=== PATIENT | male | born 1990 | race Caucasian/White ===

== ENCOUNTER 2017-11-28 18:33 | Emergency (ER) | payer SELFPAY ==
[2017-11-28 18:38] VITALS: BP 125/68; PULSE 90; RESP 18; TEMP 38.1; O2SAT 100; BMI 25.8
[2017-11-28] MEDS: DOXYCYCLINE HYCLATE 100 MG TABLET PO (19:21)
--- NOTE | 2017-11-28 21:21 | ED_ITS ---
HPI - Extremity Problem General Chief complaint: Extremity Problem,Nontraumatic Stated complaint: THINKS INFECTION OF RIGHT KNEE,HAS A FEVER Time Seen by Provider: 11/28/17 18:34 Source: patient and family Mode of arrival: ambulatory Limitations: no limitations History of Present Illness HPI Narrative: 27-year-old otherwise healthy male presents with a day and half of increasing pain and redness to his right anterior knee in the absence of injury. Additionally he complains a low-grade fever. He has pain in his anterior knee but is able to flex and extend without tremendous difficulty he denies any history of MRSA MD Complaint: extremity pain and extremity swelling Onset (ago): hour(s) Pain Consistency: constant Location: right Quality: burning and aching Radiation: none Relieving factors: rest Exacerbating factors: range of motion, weight bearing, walking and palpation Associated symptoms: fever Related Data Previous Rx's Medication Instructions Recorded doxycycline hyclate 100 mg PO BID #14 cap 11/28/17 Allergies Allergy/AdvReac Type Severity Reaction Status Date / Time Amoxicillin Allergy Unknown UNKNOWN Uncoded 11/28/17 18:41 Review of Systems Review of Systems All systems reviewed & are unremarkable except as noted in HPI and below Constitutional Denies chills, Reports fever(s), Denies lethargy and Denies weakness Eyes Denies change in vision, Denies eye discharge, Denies irritation and Denies loss of vision ENT Ears, Nose, Mouth, and Throat: Denies change in voice, Denies neck pain and Denies sore throat Cardiovascular Denies chest pain, Denies irregular heart rhythm, Denies lightheadedness, Denies palpitations, Denies dyspnea, Denies dyspnea on exertion and Denies orthopnea Respiratory Denies cough, Denies dyspnea, Denies dyspnea on exertion and Denies wheezing Gastrointestinal Gastrointestinal: Denies abdominal pain, Denies change in bowel habits, Denies diarrhea, Denies nausea and Denies vomiting Genitourinary Denies hematuria, Denies flank pain, Denies urinary incontinence and Denies urinary urgency Musculoskeletal Reports joint swelling, Reports limited range of motion and Denies neck pain Integumentary/Breasts Denies pruritus, Reports erythema, Denies rash, Reports skin pain, Reports skin swelling and Denies wounds Neurologic Denies confusion, Denies loss of vision and Denies weakness Psychiatric Denies anxiety, Denies confusion, Denies depression, Denies homicidal ideation and Denies suicidal ideation Endocrine Denies palpitations Hematologic/Lymphatic Denies easy bruising Allergic/Immunologic Denies wheezing Exam Narrative Exam Narrative: 27-year-old male in mild distress, clutching his right knee Initial Vital Signs Initial Vital Signs: Vital Signs Temperature 100.5 F H 11/28/17 18:38 Pulse Rate 90 11/28/17 18:38 Respiratory Rate 18 11/28/17 18:38 Blood Pressure 125/68 H 11/28/17 18:38 Pulse Oximetry 100 11/28/17 18:38 Const General: cooperative, well developed and in distress Nutritional Appearance: well nourished Orientation: alert, awake, oriented x3 and not confused HENMT Head: normal to inspection Nose: external nose normal Face and sinus: normal facial exam Eyes Pupils: PERRL EOM: EOM intact bilaterally Resp Effort & Inspection: normal respiratory effort, able to speak in complete sentences, no respiratory distress and no use of accessory muscles Auscultation: clear to auscultation bilaterally, no rales, no rhonchi and no wheezes GI Inspection: non-distended Palpation: soft, no hepatosplenomegaly, No guarding, No pulsatile mass and No tender Auscultation: normal bowel sounds Skin General: erythema and warm Other: Well-circumscribed painful erythematous skin with minimal edema overlying right patella. There is no fluctuance or induration Extrem Right lower extremity: full ROM and knee Procedures Abscess I/D Site: lower extremity (knee) Side (if applicable): right Local Anesthetic: lidocaine 1% and bupivacaine 0.5% Amount of anesthesia used (mL): 4 Technique: needle aspiration Amount of fluid expressed (mL): 0 Irrigation: No Packing used?: none Course Orders Ordered: Discontinued Medications Hydrocodone Bitart/Acetaminophen (Vicodin Prepack) 1 bottle MISC SEEINSTR ONE Stop: 11/28/17 19:13 Doxycycline Hyclate (Vibramycin) 100 mg PO NOW ONE Stop: 11/28/17 19:13 Last Admin: 11/28/17 19:21 Dose: 100 mg Vital Signs - 8 hr 11/28/17 18:38 Temperature 100.5 F H Pulse Rate 90 Respiratory Rate 18 Blood Pressure 125/68 H Pulse Oximetry 100 MDM - Extremity (Nontraumatic) MDM Narrative Medical decision making narrative: Septic arthritis considred but patient has full ROM of knee and very minimal effusion if any at all. The skin overlying patella is erythematous, warm, painful, and wall circumscribed suggesting cellulitis. Bedside US used and perhaps a small fluid collection noted, therefore needle aspiration attempted without success. No labs drawn Discharge Plan Departure Patient Disposition: Home, Self-Care Clinical Impression: Cellulitis of knee, right, Bursitis, prepatellar, right Discharge Date/Time: 11/28/17 19:29 Interventions: ED Discharge Assessment Last Done: 11/28/17 19:29 Instructions: DI for Cellulitis -- Adult Activity Restrictions/Additional Instructions: *You have been diagnosed with [ right knee cellulitis and possible prepatellar bursitis without abscess ] *What to do: *Take medications as directed *Follow up with your primary care provider in 2-3 days, call for an appointment. Let them know you were seen in the Emergency Department and that we ask that you be seen in follow up *Return to ER if you should have any new, worsening or concerning symptoms , such as [ shaking chills, vomiting, worsening pain of the knee, worsening swelling, inability to flex knee or other concerning symptoms ] Prescriptions: New doxycycline hyclate 100 mg capsule 100 mg PO BID Qty: 14 RF: 0 Referrals: Bernardo Davis MD [Physician] - Stand Alone Forms: Work/School Restrictions
== END 2017-11-28 19:29 | disposition home or self-care (01) ==
PROVIDERS: Emergency Provider Emergency Medicine
DX: L03.115 Cellulitis of right lower limb (principal); M70.41 Prepatellar bursitis, right knee
CPT/HCPCS: 10160; 99282; 99283

== ENCOUNTER 2017-11-30 14:34 | Inpatient (IN) | payer SELFPAY ==
[2017-11-30] VITALS (8 sets, daily range): BP systolic 113–122; BP diastolic 55–84; PULSE 84–103; RESP 16–18; TEMP 37.2–37.6; O2SAT 98–100; BMI 26.5
--- NOTE | 2017-11-30 16:42 | ED_ITS ---
HPI - Extremity Injury (Lower) General Chief Complaint: Extremity Injury, Lower Stated Complaint: FLUID IN KNEE, SPREADING Time Seen by Provider: 11/30/17 15:58 Source: patient Mode of arrival: ambulatory Limitations: no limitations History of Present Illness HPI Narrative: Patient is a young 27-year-old male with right knee pain and redness. He was here 11/28/2017 diagnosed with cellulitis and placed on doxycycline. He says that he has been alternating Tylenol and ibuprofen on a regular basis to help with pain. Has been taking his antibiotic as prescribed however the redness has worsened significantly. He still is able flex and extend without any difficulty weight-bearing does become a little bit painful. He denies any injury no history of MRSA. He has been taking around the clock Tylenol and ibuprofen to help with his shoulder in fever he is currently afebrile here. Onset (ago): day(s) (5) Related Data Previous Rx's Medication Instructions Recorded doxycycline hyclate 100 mg PO BID #14 cap 11/28/17 Allergies Allergy/AdvReac Type Severity Reaction Status Date / Time Amoxicillin Allergy Unknown UNKNOWN Uncoded 11/28/17 18:41 Review of Systems Review of Systems GENERAL: + fever,+ chills HEENT: Denies throat pain RESPIRATORY: Denies dyspnea, cough, wheezing CARDIOVASCULAR: Denies chest pain, palpitations GASTROINTESTINAL: Denies nausea, vomiting MUSCULOSKELETAL: Denies extremity pain, injury SKIN: See HPI NEUROLOGIC: Denies weakness, dizziness, headache, numbness 8 point review of systems is negative except for those stated above and HPI PFSH Social History Smoking Status: Never smoker 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 HEENT: Head atraumatic,EOMI, pupils reactive CARDIOVASCULAR: Regular rate and rhythm without murmurs, rubs or gallops. RESPIRATORY: Breath sounds equal bilaterally, no wheezes rales or rhonchi. ABDOMEN: Soft, nontender. Normoactive bowel sounds all 4 quadrants. No guarding or rebound. EXTREMITIES: Normal range of motion, no clubbing or edema. Neurovascularly intact Right Knee: Erythema Anterior half way lower leg and extending superior of the knee. No abscess. Flex and extends with ease distal pedal pulse intact NEUROLOGICAL: Alert and oriented x4.Normal gait and speech. Cranial nerves II through XII grossly intact SKIN: Warm, dry, no laceration, no petechiae, no rashes or lesions. Course Orders Ordered: ED Orders 11/30/17 17:11 Basic Metabolic Panel Stat Complete Blood Count AUTO DIFF Stat Lactate (Lactic Acid) Stat Procalcitonin Stat 11/30/17 17:40 Blood Culture Stat Sodium Chloride (Normal Saline 0.9%) 1,000 mls @ 200 mls/hr IV CONT STEWART Last Admin: 11/30/17 17:28 Dose: 200 mls/hr Discontinued Medications Vancomycin HCl 1,250 mg/ (Sodium Chloride) 250 mls @ 250 mls/hr IV NOW ONE Stop: 11/30/17 17:04 Last Admin: 11/30/17 17:39 Dose: 250 mls/hr Consultations Consultation #1: Dr. Mehta Accepts for observation Time: 18:20 Vital Signs - 8 hr 11/30/17 14:39 11/30/17 16:19 Temperature 99.0 F Pulse Rate 91 H 84 Respiratory Rate 18 18 Blood Pressure 121/70 H Blood Pressure [Right Arm] 120/62 Pulse Oximetry 100 100 MDM - Extremity Injury (Lower) Lab Data Result diagrams: 11/30/17 17:11 11/30/17 17:11 Lab Results 11/30/17 11/30/17 11/30/17 Range/Units 17:11 17:11 17:11 WBC 12.0 H (4.5-11.0) X10^3/uL RBC 5.08 (4.5-5.9) X10^6/uL Hgb 14.6 (13.5-17.5) g/dL Hct 43.5 (41-53) % MCV 85.6 (80-100) fL MCH 28.7 (26-34) PG MCHC 33.5 (30-36) % RDW 13.6 (11.6-14.8) % Plt Count 222 (150-400) X10^3/uL Neut % (Auto) 75.1 H (50-75) % Lymph % (Auto) 11.4 L (25-40) % [place] % (Auto) 12.9 (3-14) % Eos % (Auto) 0.4 L (2-4) % Baso % (Auto) 0.2 (0-2) % Neut # (Auto) 9000 H (3521-7418) /uL Sodium 144 (137-145) mmol/L Potassium 4.0 (3.4-5.1) mmol/L Chloride 102 (98-107) mmol/L Carbon Dioxide 30 (22-32) mmol/L BUN 10 (9-20) mg/dL Creatinine 0.80 (0.66-1.25) mg/dL Estimated GFR > 60.0 (>60) mL/min BUN/Creatinine Ratio 12.5 (6-22) Glucose 95 (70-100) mg/dL Lactate (0.7-2.1) mmol/L Calcium 9.4 (8.4-10.2) mg/dL Procalcitonin 0.18 (<0.5) ng/mL 11/30/ Range/Units 17:11 WBC (4.5-11.0) X10^3/uL RBC (4.5-5.9) X10^6/uL Hgb (13.5-17.5) g/dL Hct (41-53) % MCV (80-100) fL MCH (26-34) PG MCHC (30-36) % RDW (11.6-14.8) % Plt Count (150-400) X10^3/uL Neut % (Auto) (50-75) % Lymph % (Auto) (25-40) % [place] % (Auto) (3-14) % Eos % (Auto) (2-4) % Baso % (Auto) (0-2) % Neut # (Auto) (9676-3362) /uL Sodium (137-145) mmol/L Potassium (3.4-5.1) mmol/L Chloride (98-107) mmol/L Carbon Dioxide (22-32) mmol/L BUN (9-20) mg/dL Creatinine (0.66-1.25) mg/dL Estimated GFR (>60) mL/min BUN/Creatinine Ratio (6-22) Glucose (70-100) mg/dL Lactate 1.0 (0.7-2.1) mmol/L Calcium (8.4-10.2) mg/dL Procalcitonin (<0.5) ng/mL MDM Narrative Medical decision making narrative: patient does not appear septic but he certainly has significantly worsening rash over period of 2 days with antibiotics. Mild leukocytosis of 12 with a normal lactic acid and procalcitonin. I do not suspect a septic joint he is moving it quite easily. Discharge Plan Departure Patient Disposition: Admitted as Observation Clinical Impression: Cellulitis of knee, right
[2017-11-30] MEDS: SODIUM CHLORIDE 0.9% 1,000 ML 200 ML IV (17:28)
[2017-11-30 17:30] LABS: Add Manual Diff / Slide Review NO; Basophils Percent Auto 0.2 % (0-2); Eosinophils Percent Auto 0.4 % (2-4); Hematocrit 43.5 % (41-53); Hemoglobin 14.6 g/dL (13.5-17.5); Lymphocytes Percent Auto 11.4 % (25-40); Mean Corpuscular HGB Conc 33.5 % (30-36); Mean Corpuscular Hemoglobin 28.7 PG (26-34); Mean Corpuscular Volume 85.6 fL (80-100); Monocytes Percent Auto 12.9 % (3-14); Neutrophils Absolute Auto 9000 /uL (3000-5900); Neutrophils Percent Auto 75.1 % (50-75); Platelet Count 222 X10^3/uL (150-400); Red Blood Cell Count 5.08 X10^6/uL (4.5-5.9); Red Cell Distribution Width 13.6 % (11.6-14.8)
[2017-11-30 17:38] LABS: BUN Creatinine Ratio 12.5 (6-22); Blood Urea Nitrogen 10 mg/dL (9-20); Calcium 9.4 mg/dL (8.4-10.2); Carbon Dioxide 30 mmol/L (22-32); Chloride 102 mmol/L (98-107); Estimated Glomerular Filt Rate > 60.0 mL/min (>60); Glucose 95 mg/dL (70-100); HEMOLYSIS < 15 (0-50); Sodium 144 mmol/L (137-145)
[2017-11-30] MEDS: VANCOMYCIN 1,250 MG in SODIUM CHLORIDE 0.9% 250 ML IV (17:39)
[2017-11-30 18:01] LABS: Procalcitonin 0.18 ng/mL (<0.5)
--- NOTE | 2017-11-30 19:16 | PC.NURSE ---
Reid brought from ER via wheelchair, able to transfer self to BR to void, then into bed. Reports right knee/leg pain 8/10 when moving leg or walking, denies pain at rest. Red areas previously outlined by ER, to right knee cap, lat/post knee and to area anterior RLE distal to kneecap. IV Vanco finished infusing shortly after arrival. IVF infusing at 100 ml/hour as it was brought from ER. Awaiting Dr Mehta to round.
--- NOTE | 2017-11-30 19:52 | PM.HP.1 ---
History of Present Illness Date Patient Seen: 11/30/17 Time Patient Seen: 19:57 Chief complaint: FLUID IN KNEE, SPREADING Narrative: 27-year-old male who had onset of some redness on the knee on Wednesday started Wednesday morning when he woke up no history of trauma or no known insect bite he was seen in the ER for a spreading rash at that time he was placed on doxycycline and sent home and over the past 2 days since he has been on the doxycycline the redness has expanded now going up the thigh down the leg into the rubio and calf area and more painful and more red he has been taking Tylenol around the clock for fevers Patient History Medical History Obstructive sleep apnea on CPAP (Acute) Surgical History History of tonsillectomy and adenoidectomy (Acute) Family & Social History Social History: household members family Prior Living Arrangements House Safety & Behavioral: Feels Safe in Current Yes Environment Been Physically Hurt or No Threatened By a Person Suicidal Ideation Description None Suicide Plan Description No Plan Tobacco & Substance use: Smoking Status Never smoker alcohol intake frequency a few times a week Substance Use Type former substance user Meds Home Medications Medication Instructions Recorded Confirmed Type doxycycline hyclate 100 mg PO BID #14 cap 11/28/17 11/30/17 Rx Allergies Allergy/AdvReac Type Severity Reaction Status Date / Time Amoxicillin Allergy Unknown UNKNOWN Uncoded 11/28/17 18:41 Review of Systems Review of Systems All systems reviewed & are unremarkable except as noted in HPI and below Exam Vital Signs (past 8 hours): - 11/30/17 14:39 11/30/17 16:19 11/30/17 18:35 Temperature 99.0 F Pulse Rate 91 H 84 99 H Respiratory Rate 18 18 18 Blood Pressure 121/70 H Blood Pressure [Right Arm] 120/62 118/55 L Pulse Oximetry 100 100 100 11/30/17 18:45 Temperature 99.7 F H Pulse Rate 99 H Respiratory Rate 16 Blood Pressure 122/84 H Blood Pressure [Right Arm] Pulse Oximetry 98 Oxygen Delivery Method Room Air Narrative Exam Narrative: Pleasant young adult male well-developed well-nourished no acute distress HEENT exam unremarkable neck is supple Heart regular rhythm Lungs clear Abdomen soft nontender Extremities the right knee cellulitis from a few inches above the knee down into the calf with spreading erythema warmth and induration Neuro exam unremarkable Objective Labs Result Diagrams: 11/30/17 17:11 11/30/17 17:11 Labs: Laboratory Results - last 24 hr 11/30/17 11/30/17 11/30/17 17:11 17:11 17:11 WBC 12.0 H RBC 5.08 Hgb 14.6 Hct 43.5 MCV 85.6 MCH 28.7 MCHC 33.5 RDW 13.6 Plt Count 222 Neut % (Auto) 75.1 H Lymph % (Auto) 11.4 L [place] % (Auto) 12.9 Eos % (Auto) 0.4 L Baso % (Auto) 0.2 Neut # (Auto) 9000 H Sodium 144 Potassium 4.0 Chloride 102 Carbon Dioxide 30 BUN 10 Creatinine 0.80 Estimated GFR > 60.0 BUN/Creatinine Ratio 12.5 Glucose 95 Lactate Calcium 9.4 Procalcitonin 0.18 11/30/17 17:11 WBC RBC Hgb Hct MCV MCH MCHC RDW Plt Count Neut % (Auto) Lymph % (Auto) [place] % (Auto) Eos % (Auto) Baso % (Auto) Neut # (Auto) Sodium Potassium Chloride Carbon Dioxide BUN Creatinine Estimated GFR BUN/Creatinine Ratio Glucose Lactate 1.0 Calcium Procalcitonin Assessment & Plan Plan: Assessment/Plan Narrative: One. Cellulitis having failed outpatient treatment plan to admit to the hospital with IV antibiotics and draw blood cultures. Initially will place him on vancomycin until cultures are returned. Continue the Tylenol. Quality VTE Deep Vein Thrombosis/Pulmonary Embolism Present on Admission: No
[2017-11-30] MEDS: KETOROLAC 30 MG/ML VIAL IV (21:39)
--- NOTE | 2017-11-30 23:47 | PC.NURSE ---
Addendum entered by Indira Juan R.N. 12/01/17 06:27: Slept most of night with CPAP on. Up to bathroom with SBA for IV pole and limps on right leg. States pain improved and is only 3/10 when up to bathroom and very minimal at rest. Knee appears less red/swollen that at start of shift. Taking scheduled Toradol for pain control. Original Note: Patient is alert and oriented. Breath sounds CTA with RA sat of 98%; uses CPAP at night for CSA HRR. Denies nausea. BT present and abdomen is soft. Denies urinary problems. Independent with bed mobility. Right knee with erythema and swelling but redness without outline previously drawn. Denies pain at rest but states pain is 8/10 when up to bathroom. CMS intact. Fall risk score is moderate; no alarm being used at this time.
[2017-12-01] VITALS (10 sets, daily range): BP systolic 112–129; BP diastolic 57–71; PULSE 70–93; RESP 16–20; TEMP 36.7–37.4; O2SAT 98–100
[2017-12-01] MEDS: SODIUM CHLORIDE 0.9% 1,000 ML 200 ML IV ×2 (00:14→08:20)
[2017-12-01] MEDS: VANCOMYCIN 1,000 MG/200 ML FROZ.PIGGY 200 MG IV ×2 (00:15→05:26)
[2017-12-01] MEDS: KETOROLAC 30 MG/ML VIAL IV ×4 (03:55→23:02)
[2017-12-01] MEDS: SODIUM CHLORIDE 0.9% FLUSH 10 ML IV (05:36)
[2017-12-01 11:41] LABS: Vancomycin Trough 10.4 ug/mL (10-20)
[2017-12-01] MEDS: VANCOMYCIN TROUGH 1 REQUEST MISC (11:43)
--- NOTE | 2017-12-01 11:55 | PM.PN.1 ---
Subjective Date Patient Seen: 12/01/17 Time Patient Seen: 11:55 Interval history: He is feeling better knee is looking better Exam Vital Signs (past 8 hours): - 12/01/17 03:59 12/01/17 07:00 12/01/17 08:10 Temperature 99.4 F 99.3 F Pulse Rate 70 86 Respiratory Rate 20 16 Blood Pressure 112/57 L 122/69 H Pulse Oximetry 98 99 Oxygen Delivery Method Room Air Narrative Exam Narrative: Redness and warmth on the right knee has receded it is still present but much improved Objective Labs Result Diagrams: 11/30/17 17:11 11/30/17 17:11 Labs: Laboratory Results - last 24 hr 11/30/17 11/30/17 11/30/17 17:11 17:11 17:11 WBC 12.0 H RBC 5.08 Hgb 14.6 Hct 43.5 MCV 85.6 MCH 28.7 MCHC 33.5 RDW 13.6 Plt Count 222 Neut % (Auto) 75.1 H Lymph % (Auto) 11.4 L [place] % (Auto) 12.9 Eos % (Auto) 0.4 L Baso % (Auto) 0.2 Neut # (Auto) 9000 H Sodium 144 Potassium 4.0 Chloride 102 Carbon Dioxide 30 BUN 10 Creatinine 0.80 Estimated GFR > 60.0 BUN/Creatinine Ratio 12.5 Glucose 95 Lactate Calcium 9.4 Procalcitonin 0.18 Vancomycin Trough 11/30/17 12/01/17 17:11 10:43 WBC RBC Hgb Hct MCV MCH MCHC RDW Plt Count Neut % (Auto) Lymph % (Auto) [place] % (Auto) Eos % (Auto) Baso % (Auto) Neut # (Auto) Sodium Potassium Chloride Carbon Dioxide BUN Creatinine Estimated GFR BUN/Creatinine Ratio Glucose Lactate 1.0 Calcium Procalcitonin Vancomycin Trough 10.4 Assessment & Plan Plan: Assessment/Plan Narrative: One. Cellulitis right knee had failed outpatient management much improved overnight after vancomycin. Cultures pending plan to continue vancomycin for now and consider discharge tomorrow if he continues to improve Quality VTE Deep Vein Thrombosis/Pulmonary Embolism Present on Admission: No
[2017-12-01] MEDS: VANCOMYCIN 1,000 MG/200 ML FROZ.PIGGY 150 MG IV (12:35)
--- NOTE | 2017-12-01 14:48 | PC.NURSE ---
1430 Pt RLE cellulitis site is healing, Pt states is much better now, can walk w/out much discomfort.
--- NOTE | 2017-12-01 15:41 | PC.NURSE ---
Addendum entered by Octavio Weeks R.N. 12/01/17 21:50: new margins drawn on RLE, increase and change in redness from begining of shift. New margins were marked in black ink and dated with today's date. Ext. feels warm to the touch, encouraged elevation, pain tx, and refilled ice pack for comfort. Original Note: Patient is A&O x3, pleasant and cooperative w/ staff and able to make needs known when nec. Reports pain in RLE a 1/10 at rest and increased w/ standing to 3-4/10. Redness has greatly improved given drawn margins on skin. Edema to RLE is still greater then LLE, 2+ non pitting. Still states decreased ROM but CMS intact and PP++. Patient is indep. in room, call light w/in reach, aware to call w/ needs if any. Up to chair at this time.
[2017-12-01] MEDS: VANCOMYCIN 1,250 MG in SODIUM CHLORIDE 0.9% 250 ML 200 ML IV (18:45)
--- NOTE | 2017-12-01 23:56 | PC.NURSE ---
Addendum entered by Indira Juan R.N. 12/02/17 06:08: Has appeared to sleep much of shift; has had CPAP on. No complaints of pain; receiving scheduled Toradol. Original Note: Patient is alert and oriented. Breath sounds CTA with RA sat of 99%. HRR. Denies nausea. BT present and abdomen is soft. Denies urinary problems and is using urinal at bedside. Currently sitting up in recliner with right LE elevated and using ice packs. Deepest redness over right patella but surrounding skin is lightly pink and within markings redrawn on previous shift. Denies pain at rest but states pain worsens with ambulation and throbs; is taking scheduled Toradol. Independent with mobility and is steady on feet. Uses CPAP at night due to CSA. Fall risk score is med; no bed alarm is currently being utilized.
[2017-12-02] MEDS: VANCOMYCIN 1,250 MG in SODIUM CHLORIDE 0.9% 250 ML 200 ML IV (02:23)
[2017-12-02] MEDS: SODIUM CHLORIDE 0.9% 250 ML 21 ML IV (02:23)
[2017-12-02] MEDS: SODIUM CHLORIDE 0.9% FLUSH 10 ML IV ×2 (02:26→12:26)
[2017-12-02] MEDS: KETOROLAC 30 MG/ML VIAL IV ×2 (03:51→12:25)
[2017-12-02 05:00] VITALS: BP 110/57; PULSE 62; RESP 17; O2SAT 100
[2017-12-02 06:46] VITALS: TEMP 36.7
[2017-12-02 07:00] VITALS: O2SAT 99
[2017-12-02 09:45] VITALS: BP 121/70; PULSE 93; RESP 16; TEMP 37.1; O2SAT 97
--- NOTE | 2017-12-02 11:59 | P.DS_ITS ---
History of Present Illness Date Patient Seen: 12/02/17 Time Patient Seen: 11:47 Chief complaint: FLUID IN KNEE, SPREADING Narrative: 27-year-old male who had onset of some redness on the knee on Wednesday started Wednesday morning when he woke up no history of trauma or no known insect bite he was seen in the ER for a spreading rash at that time he was placed on doxycycline and sent home and over the past 2 days since he has been on the doxycycline the redness has expanded now going up the thigh down the leg into the rubio and calf area and more painful and more red he has been taking Tylenol around the clock for fevers. Discharge Providers Date of admission: 11/30/17 18:33 Discharge provider: ADAMARIS Elkins Summary Discharge Diagnosis: 1. Cellulitis right knee Hospital Course: This is a summary of a 2 day hospitalization for this 27-year- old pleasant male patient who presented to the emergency room with complaints of increasing redness, pain, and fluid in the knee after starting a course of outpatient antibiotics (doxycycline). He was changed to IV vancomycin for the past 24 hr. His symptoms and signs improved overnight and he is now able to have what he describes is full range of motion of the right knee while in bed. The redness and warmth of the right knee has receded but it is still present but much improved. Continues to have some discomfort with weight-bearing but this also has improved since yesterday. He will be changed to Bactrim for a 10 day course as an outpatient. He will need to establish a primary care provider as an outpatient for follow-up. He has been advised of signs and symptoms of when to return to the acute care clinic or emergency room if needed. Status at Discharge Functional status at discharge: independent ambulation Overall status at discharge: patient is progressing back to baseline Time Spent with Patient Less than 30 minutes Exam Vital Signs (past 8 hours): - 12/02/17 05:00 12/02/17 06:46 12/02/17 07:00 Temperature 98.1 F Pulse Rate 62 Respiratory Rate 17 Blood Pressure 110/57 L Pulse Oximetry 100 99 Oxygen Delivery Method Room Air Oxygen Flow Rate 0 Narrative Exam Narrative: Const General: cooperative, healthy appearing, comfortable, well developed and well groomed Nutritional Appearance: average body habitus and well nourished Orientation: alert, awake and oriented x3 HENMT Head: normal to inspection, normocephalic and atraumatic Eyes General: appearance normal, both eyes and all related structures Neck Neck: normal visual inspection Other: No JVD or lymphadenopathy Chest Chest: normal inspection of the chest Resp Effort & Inspection: normal respiratory effort and able to speak in complete sentences Auscultation: clear to auscultation bilaterally Cardio Rate: regular rate Heart Sounds: S1 normal and S2 normal GI Inspection: normal to inspection Palpation: soft Auscultation: normal bowel sounds Other: Voiding without difficulty Skin General: no rashes or lesions noted Neuro General: alert, awake and oriented x3 Cognition: normal cognition Speech: speech normal Gait: normal gait Motor: muscle tone normal throughout Sensory Exam: no sensory deficits noted Extrem Right upper extremity: normal to inspection Left upper extremity: normal to inspection Right lower extremity: knee (Right knee cellulitis from a few inches above the knee down to the mid calf with spreading erythema warmth and induration.) Details: tenderness, swelling and warmth Left lower extremity: normal to inspection Psych Appearance: grossly normal Mental Status: mental status grossly normal Speech and Movement: speech and movement normal Mood: congruent mood Affect: normal affect Attitude: cooperative Thought Process: normal Thought Content: normal Judgment: judgment good Objective Labs Result Diagrams: 11/30/17 17:11 11/30/17 17:11 Discharge Plan Discharge Plan Patient Disposition: Home, Self-Care Discharge comment: Patient needs to establish primary care provider as soon as possible. Provider Discharge Instructions Diet: Regular Activity: Elevate right leg Cold/Heat Therapy: May apply ice to right knee for comfort. Oxygen: Room air Wound Care Report to your healthcare provider any signs of infection, such as:: chills, fever, night sweats and increased pain Discharge Data Attending Provider: Terrell Mehta Admit Date/Time: 11/30/17 18:33 Quality VTE Deep Vein Thrombosis/Pulmonary Embolism Present on Admission: No
[2017-12-02] MEDS: SULFA/TRIMETH 800/160 (DS) TABLET 1 TAB PO (12:26)
== END 2017-12-02 13:43 | disposition home or self-care (01) | DRG 603 ==
LOC: ED 18:17 → AC 12-01 09:16
PROVIDERS: Admitting Provider Internal Medicine; Emergency Provider Emergency Medicine; Visit Provider Internal Medicine
DX: L03.115 Cellulitis of right lower limb (principal); G47.33 Obstructive sleep apnea (adult) (pediatric)
CPT/HCPCS: 36415; 36591; 80048; 80202; 83605; 84145; 85025; 87040; 96365; 96366; 99283; 99285; J1885; J3370

== ENCOUNTER → 2018-03-30 21:00 | Outpatient (CLI) | payer SELFPAY ==
[2017-11-30 18:58] VITALS: BMI 26.5
[2018-03-30 23:03] LABS: Urine N gonorrhoeae NOT DETECTED
[2018-03-31 10:03] LABS: Urine Chlamydia DETECTED
== END ==
PROVIDERS: PCP Physician Assistant; Visit Provider Physician Assistant
DX: Z20.2 Contact with and (suspected) exposure to infections with a predominantly sexual mode of transmission (principal)
CPT/HCPCS: 87491; 87591

== ENCOUNTER → 2018-10-12 16:33 | Outpatient (CLI) | payer BC, SELFPAY ==
[2017-11-30 18:58] VITALS: BMI 26.5
[2018-10-12 17:48] LABS: Add Manual Diff / Slide Review NO; Basophils Absolute Auto 0 /uL (0-100); Basophils Percent Auto 0.5 % (0-2); Eosinophils Absolute Auto 0 /uL (0-450); Eosinophils Percent Auto 0.6 % (2-4); Hematocrit 42.9 % (41-53); Hemoglobin 14.5 g/dL (13.5-17.5); Lymphocytes Absolute Auto 1900 /uL (1100-4500); Lymphocytes Percent Auto 39.9 % (25-40); Mean Corpuscular HGB Conc 33.9 % (30-36); Mean Corpuscular Volume 85.5 fL (80-100); Monocytes Absolute Auto 500 /uL (0-900); Neutrophils Absolute Auto 2300 /uL (1500-7000); Platelet Count 243 X10^3/uL (150-400); Red Blood Cell Count 5.02 X10^6/uL (4.5-5.9); White Blood Cell Count 4.8 X10^3/uL (4.5-11.0)
[2018-10-12 18:08] LABS: Alanine Aminotransferase 30 IU/L (21-72); Albumin 4.8 g/dL (3.5-5.0); Albumin Globulin Ratio 1.8 (1.0-2.8); Alkaline Phosphatase 58 U/L (38-126); Aspartate Aminotransferase 31 IU/L (17-59); BUN Creatinine Ratio 16.7 (6-22); Bilirubin Total 0.4 mg/dL (0.2-1.3); Blood Urea Nitrogen 15 mg/dL (9-20); Calcium 9.7 mg/dL (8.4-10.2); Carbon Dioxide 29 mmol/L (22-32); Chloride 101 mmol/L (98-107); Estimated Glomerular Filt Rate > 60.0 mL/min (>60); Globulin 2.7 g/dL (1.7-4.1); Glucose 95 mg/dL (70-100); HEMOLYSIS < 15 (0-50); Potassium 4.4 mmol/L (3.4-5.1); Sodium 140 mmol/L (137-145); Total Protein 7.5 g/dL (6.3-8.2)
[2018-10-12 18:42] LABS: Thyroid Stimulating Hormone 1.23 uIU/mL (0.47-4.68)
[2018-10-14 20:14] LABS: Sex Hormone Binding Globulin 53 nmol/L (10-50); Testosterone, Bioavailable 112.9 ng/dL (110.0-575.0); Testosterone, Total 577 ng/dL (250-1100); Testosterone,Free 51.6 pg/mL (46.0-224.0)
[2018-10-18 13:03] LABS: Albumin 4.8
== END ==
PROVIDERS: PCP Physician Assistant; Visit Provider Physician Assistant
DX: R41.840 Attention and concentration deficit (principal); R53.1 Weakness; R53.81 Other malaise; R53.83 Other fatigue; G47.31 Primary central sleep apnea; Z91.89 Other specified personal risk factors, not elsewhere classified
CPT/HCPCS: 36415; 80053; 82040; 84270; 84403; 84443; 85025